=== PATIENT | male | born 1960 | race Caucasian/White ===

== ENCOUNTER → 2017-05-22 | Day surgery (SDC) | payer BC ==
[~2017-05-22] MED LIST: ADVIL200 M3 PO; ASPIRIN81 M1 PO; FISH OIL 1,0001 CAP PO; GLUCOSAMINE PO; LOTREL 5-20 MG1 CAP PO; MULTIVITAMIN1 UDCAP PO; OINTMENT; TUMERSAID TABL1 EACH PO
--- NOTE | ~2017-05-22 | OR ---
Unit #: [id number] #: [id number] Patient: SAGRARIO BENSON [id number] [address] [id number] O MR#: [id number] NAME: SAGRARIO BENSON ROOM: Date of Procedure: 05/22/2017 Admission Date: 05/22/2017 Surgeon: Henri Butcher M.D. : 1960 Attending Physician: Henri Butcher M.D. Primary Care Physician: Haleigh Astorga M.D. OPERATIVE REPORT PREOPERATIVE DIAGNOSES 1. History of colonic polyps. 2. Screening colonoscopy. POSTOPERATIVE DIAGNOSES 1. History of colonic polyps. 2. Screening colonoscopy. PROCEDURE PERFORMED Colonoscopy to cecum. ANESTHESIA Monitored anesthesia care. FINDINGS The patient was found to have a normal colon to cecum. SPECIMENS None. COMPLICATIONS None apparent. CONDITION The patient tolerated the procedure well. INDICATIONS FOR PROCEDURE The patient is a 56-year-old white male. He presents at this time for screening colonoscopy. On last colonoscopy 5 years ago, he had a colonic polyp present. DESCRIPTION OF PROCEDURE After obtaining informed consent, the patient was brought to the endoscopy suite and after adequate monitored anesthesia care, had digital examination performed. There were no palpable masses. There was good sphincter tone. The colonoscope was then lubricated and placed through the anus and advanced to the level of the cecum without difficulty with the lumen always in view. The cecum was normal as was the ileocecal valve. The ascending colon was normal as was the hepatic flexure, transverse colon, splenic flexure, descending colon, sigmoid colon, and rectum. On retroflexing the rectum to the anorectal junction, the patient was found to have no obvious abnormalities. The scope was removed without Unit #: [id number] #: [id number] Patient: SAGRARIO BENSON difficulty. The patient tolerated the procedure well and went from the endoscopy suite to the recovery area in stable condition. RECOMMENDATIONS High-fiber diet, lots of liquids, tucks or wipes p.r.n. Repeat colonoscopy in 5 years. Dictated by... Henri Butcher M.D. JPG/nayl TD: 05/22/2017 07:57 JOB #: [id number] [facility] OPERATIVE REPORT Page 1 of 1 X Henri Butcher MD PROCEDURE OPERATIVE NOTE
== END | disposition home or self-care (01) ==
LOC: COPS 05:37
PROVIDERS: Surgery
PROC: 0DJD8ZZ Inspection of Lower Intestinal Tract, Via Natural or Artificial Opening Endoscopic (ICD-10-PCS; principal; 2017-05-22 07:00)
DX: Z12.11 Encounter for screening for malignant neoplasm of colon (principal); Z86.010 Personal history of colon polyps; M54.9 Dorsalgia, unspecified; M25.559 Pain in unspecified hip; M25.50 Pain in unspecified joint; Z79.899 Other long term (current) drug therapy; Z79.82 Long term (current) use of aspirin; Z79.1 Long term (current) use of non-steroidal anti-inflammatories (NSAID)
CPT/HCPCS: J2250